=== PATIENT | male | born 1960 | race Caucasian/White ===

== ENCOUNTER 2017-05-31 21:17 | Inpatient (IN) | payer OTHER, MEDICARE ==
[~2017-05-31] VITALS: Ht 188 cm; Wt 116.4 kg
[2017-05-31 21:16] VITALS: O2SAT 100
[2017-05-31] MEDS ORDERED: IOHEXOL 350 MG/ML 10 ML VIAL (for RAD DIAG) IVCONTRAST ONE (21:18)
[2017-05-31] MEDS ORDERED: MORPHINE SULFATE 4 MG/ML INJ ONE (21:26)
[2017-05-31] MEDS ORDERED: ONDANSETRON HCL 4 MG/2 ML VIAL ONE (21:27)
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
[2017-05-31 21:46] LABS: AUTOMATED NEUTROPHIL # 3.5 TH/MM3 (1.8-7.7); BASOPHIL % 0.6 % (0.0-2.0); EOSINOPHIL # 0.4 TH/MM3 (0-0.4); EOSINOPHIL % 5.6 % (0.0-4.0); HEMATOCRIT 38.7 % (39.0-51.0); HEMOGLOBIN 13.4 GM/DL (13.0-17.0); LYMPH % 31.9 % (9.0-44.0); LYMPHOCYTE # 2.2 TH/MM3 (1.0-4.8); MEAN CELL VOLUME 89.6 FL (80.0-100.0); MEAN CORPUSCULAR HGB CONC 34.6 % (32.0-36.0); MEAN PLATELET VOLUME 7.8 FL (7.0-11.0); MONO % 11.3 % (0.0-8.0); MONOCYTE # 0.8 TH/MM3 (0-0.9); NEUT % 50.6 % (16.0-70.0); PLATELET COUNT 216 TH/MM3 (150-450); RED BLOOD COUNT 4.32 MIL/MM3 (4.50-5.90); RED CELL DISTRIBUTION WIDTH 14.4 % (11.6-17.2); WHITE BLOOD COUNT 6.9 TH/MM3 (4.0-11.0)
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
[2017-05-31 22:00] LABS: PROTHROMBIN TIME - PATIENT 10.6 SEC (9.8-11.6)
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
[2017-05-31 22:05] VITALS: BP 128/72; PULSE 88; RESP 20; TEMP 98; O2SAT 98
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
[2017-05-31 22:16] VITALS: RESP 20
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
--- NOTE | 2017-05-31 22:26 | PD ---
Physical Exam Date Seen by Provider: May 31, 2017 Time Seen by Provider: 22:24 Data Data Last Documented VS Vital Signs Date Time Temp Pulse Resp B/P (MAP) Pulse Ox O2 Delivery O2 Flow Rate FiO2 05/31/17 22:16 98 Nasal Cannula 2.00 05/31/17 22:16 20 05/31/17 22:05 98.0 88 128/72 (90) Orders Orders Morphine Inj (Morphine Inj) (05/31/17 21:26) Ondansetron Inj (Zofran Inj) (05/31/17 21:27) I-Stat Profile (05/31/17 21:20) Complete Blood Count With Diff (05/31/17 21:20) Prothrombin Time / Inr (Pt) (05/31/17 21:20) Act Partial Throm Time (Ptt) (05/31/17 21:20) Type And Screen (05/31/17 21:20) Alcohol (Ethanol) (05/31/17 21:20) Chest, Single Ap (05/31/17 21:20) Pelvis, Ap Only (Routine) (05/31/17 21:20) Ct Brain W/O Iv Contrast(Rout) (05/31/17 21:20) Ct Cerv Spine W/O Contrast (05/31/17 21:20) Ct Abd/Pel W Iv Contrast(Rout) (05/31/17 21:20) Ct Thorax/ Chest W Iv Contrast (05/31/17 21:20) Ct Thor Spine W Iv Contrast (05/31/17 21:20) Ct Lumb Spine W Iv Contrast (05/31/17 21:20) Ct Facial Bones W/O Iv Cont (05/31/17 21:20) Iv Access Insert/Monitor (05/31/17 21:20) Ecg Monitoring (05/31/17 21:20) Oximetry (05/31/17 21:20) Oxygen Administration (05/31/17 21:20) Shoulder, One View (05/31/17 ) Sling And Swathe (05/31/17 ) Iohexol 350 Inj (Omnipaque 350 Inj) (05/31/17 21:18) Labs Laboratory Tests Test 05/31/17 21:21 White Blood Count 6.9 TH/MM3 Red Blood Count 4.32 MIL/MM3 Hemoglobin 13.4 GM/DL Bedside Hemoglobin 13.6 G/DL Hematocrit 38.7 % Bedside Hematocrit 40.0 % Mean Corpuscular Volume 89.6 FL Mean Corpuscular Hemoglobin 31.0 PG Mean Corpuscular Hemoglobin Concent 34.6 % Red Cell Distribution Width 14.4 % Platelet Count 216 TH/MM3 Mean Platelet Volume 7.8 FL Neutrophils (%) (Auto) 50.6 % Lymphocytes (%) (Auto) 31.9 % Monocytes (%) (Auto) 11.3 % Eosinophils (%) (Auto) 5.6 % Basophils (%) (Auto) 0.6 % Neutrophils # (Auto) 3.5 TH/MM3 Lymphocytes # (Auto) 2.2 TH/MM3 Monocytes # (Auto) 0.8 TH/MM3 Eosinophils # (Auto) 0.4 TH/MM3 Basophils # (Auto) 0.0 TH/MM3 CBC Comment DIFF FINAL Differential Comment Prothrombin Time 10.6 SEC Prothromb Time International Ratio 1.0 RATIO Activated Partial Thromboplast Time 18.4 SEC Bedside Sodium 146 MMOL/L Bedside Potassium 4.4 MMOL/L Bedside Chloride 108 MMOL/L Bedside Blood Urea Nitrogen 13 MG/DL Bedside Creatinine 1.1 MG/DL Bedside Glucose 132 MG/DL Ethyl Alcohol Level 143 MG/DL [facility] Supervised Visit with ADALBERTO: No Narrative Course I was asked to evaluate this patient's left posterior scalp laceration. The patient was initially seen by Dr. Quintanilla. Please see her note for full H&P. On my exam there is a large, boggy hematoma with 21 cm linear lacerations. No active bleeding.. Laceration repair was performed. Please see my procedure note for details. Dr. Quintanilla retains care of this patient. Please see her note for disposition. Procedures Procedure Narrative LACERATION LOCATION: Left posterior scalp LENGTH: 1 cm NUMBER OF STITCHES/MEHRDAD: 1 REPAIR: The wound was copiously irrigated and explored without evidence of foreign body, tendon injury or neurovascular injury. The wound was closed using surgical mehrdad. This was a single layer repair. A sterile dressing was applied. The patient was advised to keep the dressing clean and dry. Patient tolerated the procedure well. LACERATION LOCATION: Left posterior scalp LENGTH: 1 cm NUMBER OF STITCHES/MEHRDAD: 2 REPAIR: The wound was copiously irrigated and explored without evidence of foreign body, tendon injury or neurovascular injury. The wound was closed using surgical mehrdad. This was a single layer repair. A sterile dressing was applied. The patient was advised to keep the dressing clean and dry. Patient tolerated the procedure well. María Elena Damon May 31, 2017 22:26
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
[2017-05-31] MEDS ORDERED: SODIUM CHLORIDE 0.9% FLUSH 10 ML FLUSH IV FLUSH PRN (23:00)
[2017-05-31] MEDS ORDERED: CHLORHEXIDINE GLUCONATE 2 % 1 PACK (2 CLOTHS) TOP PRN (23:00)
[2017-05-31] MEDS ORDERED: ACETAMINOPHEN 325 MG TAB PO PRN (23:00)
[2017-05-31] MEDS ORDERED: ENALAPRILAT 1.25 MG/ML VIAL IV PUSH PRN (23:00)
[2017-05-31] MEDS ORDERED: MISCELLANEOUS NURSING INFORMATION XX SCH (23:00)
[2017-05-31] MEDS ORDERED: ACETAMINOPHEN/HYDROcodone 325 MG/5 MG TAB PO PRN (23:00)
[2017-05-31 23:27] VITALS: BP 138/60; PULSE 100; RESP 20; O2SAT 99
[2017-05-31] MEDS: MORPHINE SULFATE 2 MG/ML INJ IV PRN (23:45)
[2017-05-31] MEDS: ACETAMINOPHEN/HYDROcodone 325 MG/5 MG TAB PO PRN (23:59)
[2017-06-01] VITALS (14 sets, daily range): BP systolic 103–133; BP diastolic 70–79; PULSE 76–112; RESP 16–22; TEMP 97.9–98.8; O2SAT 98–100
[2017-06-01] MEDS ORDERED: ALPRAZolam 1 MG TAB PO ONE (00:45)
[2017-06-01] MEDS: BACITRACIN TOP OINT 15 GM TUBE TOP SCH ×3 (00:46→20:37)
[2017-06-01] MEDS: SODIUM CHLOR 0.9% 1000 ML INJ 1,000 ML IV SCH ×3 (00:47→19:00)
[2017-06-01] MEDS: MORPHINE SULFATE 2 MG/ML INJ IV PRN ×2 (01:30→03:48)
[2017-06-01] MEDS: CHLORHEXIDINE GLUCONATE 2 % 1 PACK (2 CLOTHS) TOP SCH (04:00)
[2017-06-01 04:31] LABS: AUTOMATED NEUTROPHIL # 7.2 TH/MM3 (1.8-7.7); BASOPHIL % 0.2 % (0.0-2.0); EOSINOPHIL # 0.1 TH/MM3 (0-0.4); EOSINOPHIL % 1.2 % (0.0-4.0); HEMATOCRIT 35.4 % (39.0-51.0); HEMOGLOBIN 12.3 GM/DL (13.0-17.0); LYMPH % 14.4 % (9.0-44.0); LYMPHOCYTE # 1.4 TH/MM3 (1.0-4.8); MEAN CELL VOLUME 90.5 FL (80.0-100.0); MEAN CORPUSCULAR HEMOGLOBIN 31.3 PG (27.0-34.0); MEAN CORPUSCULAR HGB CONC 34.6 % (32.0-36.0); MEAN PLATELET VOLUME 7.9 FL (7.0-11.0); MONOCYTE # 1.2 TH/MM3 (0-0.9); NEUT % 72.2 % (16.0-70.0); PLATELET COUNT 208 TH/MM3 (150-450); RED BLOOD COUNT 3.92 MIL/MM3 (4.50-5.90); WHITE BLOOD COUNT 9.9 TH/MM3 (4.0-11.0)
[2017-06-01 05:03] LABS: BICARBONATE 21.3 MEQ/L (21.0-32.0); CALCIUM 7.9 MG/DL (8.5-10.1); CREATININE 0.77 MG/DL (0.60-1.30)
[2017-06-01] MEDS: METHOCARBAMOL 500 MG TAB PO SCH ×3 (07:02→20:37)
[2017-06-01] MEDS: MULTIVITAMIN TAB PO SCH (08:02)
[2017-06-01] MEDS: FOLIC ACID 1 MG TAB PO SCH (08:02)
[2017-06-01] MEDS: THIAMINE HCL 100 MG TAB PO SCH (08:02)
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
[2017-06-01] MEDS: ACETAMINOPHEN/HYDROcodone 325 MG/5 MG TAB PO PRN (08:06)
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
[2017-06-01] MEDS: DOCUSATE SODIUM 50 MG/SENNA 8.6 MG TAB PO SCH ×2 (09:00→20:37)
[2017-06-01] MEDS: MORPHINE SULFATE 4 MG/ML INJ IV PRN ×4 (09:41→20:41)
[2017-06-01] MEDS: ONDANSETRON HCL 4 MG/2 ML VIAL IV PUSH PRN ×2 (09:42→20:41)
[2017-06-01] MEDS: LISINOPRIL 20 MG TAB PO SCH (10:15)
[2017-06-01] MEDS ORDERED: GLUCAGON 1 MG/ML VIAL OTHER PRN (10:15)
[2017-06-01] MEDS ORDERED: DEXTROSE 50% IN WATER 50 ML VIAL(D50) IV PUSH PRN (10:15)
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
[2017-06-01] MEDS: LIDOCAINE HCL 5% PATCH T-DERMAL SCH (11:45)
[2017-06-01] MEDS: METOPROLOL SUCCINATE 50 MG EXTENDED RELEASE TAB PO SCH (11:45)
[2017-06-01] MEDS: INSULIN NovoLIN REGULAR SUPPLEMENTAL SCALE SQ SCH ×4 (12:30→21:00)
--- NOTE | 2017-06-01 13:55 | RADRPT ---
EXAM DATE/TIME: 06/01/2017 12:59 [facility] COMPARISON: None. INDICATIONS : <<Follow up bleed. >> RADIATION DOSE: <<64.69>> CTDIvol (mGy) MEDICAL HISTORY : Hypertension. SURGICAL HISTORY : None. ENCOUNTER: Subsequent ACUITY: 2 days PAIN SCALE: 4/10 LOCATION: Left chest TECHNIQUE: Multiple contiguous axial images were obtained of the head. Using automated exposure control and adj ustment of the mA and/or kV according to patient size, radiation dose was kept as low as reasonably a chievable to obtain optimal diagnostic quality images. DICOM format image data is available electro nically for review and comparison. FINDINGS: Subarachnoid on the right side near the vertex is noted to be stable considering differences in techn ique. No significant new intracranial hemorrhage. No mass effect or shift. No hydrocephalus. Left par ietal scalp hematoma remains. No acute bony abnormalities. CONCLUSION: 1. Relatively stable subarachnoid hemorrhage in the right side near the vertex. No significant mass e ffect or shift. London Grimm MD on June 01, 2017 at 13:50 Board Certified Radiologist. This report was verified electronically.
[2017-06-01] MEDS: RESP: ALBUTEROL 2.5 MG/IPRATROPIUM 0.5 MG NEB (SCH) NEB ×2 (16:00→19:31)
--- NOTE | 2017-06-01 19:05 | EKG ---
Date Performed: 06/01/2017 Time Performed: 10:17:09 PTAGE: 56 years EKG: Sinus rhythm NORMAL ECG NO PREVIOUS TRACING DOCTOR: Gaurang Moore Interpretating Date/Time 06/01/2017 19:05:13
[2017-06-01] MEDS ORDERED: ATORVASTATIN 40 MG TAB PO SCH (21:00)
[2017-06-02 00:25] VITALS: BP 118/70; PULSE 78; RESP 18; TEMP 99.3; O2SAT 95
[2017-06-02 04:00] VITALS: BP 122/80; PULSE 75; RESP 17; TEMP 98.4; O2SAT 96
[2017-06-02] MEDS: CHLORHEXIDINE GLUCONATE 2 % 1 PACK (2 CLOTHS) TOP SCH (04:00)
[2017-06-02 05:47] LABS: AUTOMATED NEUTROPHIL # 4.3 TH/MM3 (1.8-7.7); BASOPHIL % 0.4 % (0.0-2.0); EOSINOPHIL # 0.2 TH/MM3 (0-0.4); EOSINOPHIL % 3.1 % (0.0-4.0); HEMATOCRIT 34.7 % (39.0-51.0); HEMOGLOBIN 11.9 GM/DL (13.0-17.0); LYMPH % 17.8 % (9.0-44.0); LYMPHOCYTE # 1.2 TH/MM3 (1.0-4.8); MEAN CELL VOLUME 89.5 FL (80.0-100.0); MEAN CORPUSCULAR HEMOGLOBIN 30.8 PG (27.0-34.0); MEAN CORPUSCULAR HGB CONC 34.4 % (32.0-36.0); MEAN PLATELET VOLUME 7.7 FL (7.0-11.0); MONO % 12.7 % (0.0-8.0); MONOCYTE # 0.8 TH/MM3 (0-0.9); PLATELET COUNT 181 TH/MM3 (150-450); RED BLOOD COUNT 3.88 MIL/MM3 (4.50-5.90); RED CELL DISTRIBUTION WIDTH 14.2 % (11.6-17.2); WHITE BLOOD COUNT 6.5 TH/MM3 (4.0-11.0)
[2017-06-02] MEDS: METHOCARBAMOL 500 MG TAB PO SCH ×2 (05:50→12:26)
[2017-06-02] MEDS: SODIUM CHLOR 0.9% 1000 ML INJ 1,000 ML IV SCH (05:50)
[2017-06-02] MEDS ORDERED: LEVOTHYROXINE SODIUM 200 MCG TAB PO SCH (06:00)
--- NOTE | 2017-06-02 06:01 | RADRPT ---
EXAM DATE/TIME: 06/02/2017 05:12 [facility] COMPARISON: CHEST SINGLE AP, May 31, 2017, 21:18. INDICATIONS : Short of breath. MEDICAL HISTORY : None. SURGICAL HISTORY : None. ENCOUNTER: Subsequent ACUITY: 3 days PAIN SCORE: 0/10 LOCATION: Bilateral chest FINDINGS: A single view of the chest demonstrates the lungs to be symmetrically aerated without evidence of mas s, infiltrate or effusion. The cardiomediastinal contours are unremarkable. Osseous structures are intact. CONCLUSION: No acute disease. Bhavin Vickers Jr., MD on June 02, 2017 at 5:59 Board Certified Radiologist. This report was verified electronically.
[2017-06-02 06:08] LABS: BICARBONATE 29.4 MEQ/L (21.0-32.0); CALCIUM 8.9 MG/DL (8.5-10.1); CREATININE 0.74 MG/DL (0.60-1.30)
[2017-06-02 08:00] VITALS: BP 129/82; PULSE 82; RESP 22; TEMP 98.6; O2SAT 98
[2017-06-02] MEDS: INSULIN NovoLIN REGULAR SUPPLEMENTAL SCALE SQ SCH (08:00)
[2017-06-02] MEDS: RESP: ALBUTEROL 2.5 MG/IPRATROPIUM 0.5 MG NEB (SCH) NEB (08:25)
[2017-06-02 08:28] VITALS: O2SAT 99
[2017-06-02] MEDS: DOCUSATE SODIUM 50 MG/SENNA 8.6 MG TAB PO SCH (08:37)
[2017-06-02] MEDS: LISINOPRIL 20 MG TAB PO SCH (08:37)
[2017-06-02] MEDS: THIAMINE HCL 100 MG TAB PO SCH (08:37)
[2017-06-02] MEDS: MULTIVITAMIN TAB PO SCH (08:37)
[2017-06-02] MEDS: METOPROLOL SUCCINATE 50 MG EXTENDED RELEASE TAB PO SCH (08:37)
[2017-06-02] MEDS: FOLIC ACID 1 MG TAB PO SCH (08:37)
[2017-06-02] MEDS: LIDOCAINE HCL 5% PATCH T-DERMAL SCH (08:38)
[2017-06-02] MEDS ORDERED: PERI PO (10:04)
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
[2017-06-02] MEDS ORDERED: HYDR-3516 PO (10:43)
[2017-06-02 12:00] VITALS: BP 123/85; PULSE 73; RESP 15; TEMP 98.9; O2SAT 98
[2017-06-02] MEDS ORDERED: PERC5TAB12 PO (12:34)
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
== END 2017-06-02 12:45 | disposition home or self-care (01) | DRG 83 ==
LOC: NEPI 21:17 → EDBD 22:51 → NEDA 22:51 → N03B 23:35
PROVIDERS: ADMIT Surgery; ATTEND Surgery
PROC: 0HQ0XZZ Repair Scalp Skin, External Approach (ICD-10-PCS; principal; 2017-05-31)
DX: S06.6X9A Traumatic subarachnoid hemorrhage with loss of consciousness of unspecified duration, initial encounter (principal); S22.42XA Multiple fractures of ribs, left side, initial encounter for closed fracture; S01.01XA Laceration without foreign body of scalp, initial encounter; J98.11 Atelectasis; S42.025A Nondisplaced fracture of shaft of left clavicle, initial encounter for closed fracture; I10 Essential (primary) hypertension; E03.9 Hypothyroidism, unspecified; D64.9 Anemia, unspecified; R40.2412 Glasgow coma scale score 13-15, at arrival to emergency department; M54.5 Low back pain; G89.29 Other chronic pain; E11.9 Type 2 diabetes mellitus without complications; E78.5 Hyperlipidemia, unspecified; F41.9 Anxiety disorder, unspecified; V28.4XXA Motorcycle driver injured in noncollision transport accident in traffic accident, initial encounter; Y92.410 Unspecified street and highway as the place of occurrence of the external cause
CPT/HCPCS: 12001; 29240; 70450; 70486; 71045; 71260; 72125; 72129; 72132; 72170; 73020; 74177; 80048; 80307; 82948; 85025; 85610; 85730; 86850; 86900; 86901; 87641; 90471; 93005; 94150; 94640; 94664; 94667; 94668; 96365; 96375; 99291; G0390; J2270; J2405; J7030; Q9967